=== PATIENT | male | born 1985 | race African-American/Black ===

== ENCOUNTER 2016-12-30 14:23 | Emergency (ER) | payer BC ==
[~2016-12-30] VITALS: Ht 185.4 cm; Wt 136.1 kg
[2016-12-30 14:38] VITALS: BP 152/86
[2016-12-30] MEDS ORDERED: AMOX500C PO (14:52)
[2016-12-30] MEDS ORDERED: DEXA4TAB PO (14:52)
--- NOTE | 2016-12-30 14:53 | PHYS DOC ---
Past Medical History Past Medical History: Other Additional Past Medical Histor: DEPRESSION Past Surgical History: No Surgical History Alcohol Use: Occasionally Drug Use: None Adult General Chief Complaint Chief Complaint: SORE THROAT HPI HPI Patient is a 31 year old male since emergency Department with a 3 day history of a sore throat. States that he has had some fever and chills although has not taken anything at home for the irritation. Patient denies any nausea vomiting he denies cough or congestion. Review of Systems Review of Systems Constitutional: subjective fever Eyes: Denies change in visual acuity, redness, or eye pain [] HENT: Denies nasal congestion C/o sore throat [] Respiratory: Denies cough or shortness of breath [] Cardiovascular: No additional information not addressed in HPI [] GI: Denies abdominal pain, nausea, vomiting, bloody stools or diarrhea [] : Denies dysuria or hematuria [] Musculoskeletal: Denies back pain or joint pain [] Integument: Denies rash or skin lesions [] Neurologic: Denies headache, focal weakness or sensory changes [] Endocrine: Denies polyuria or polydipsia [] Allergies Allergies Allergies Coded Allergies Type Severity Reaction Last Updated Verified aspirin Allergy Severe ANAPHYLAXIS 05/18/14 Yes ibuprofen Allergy Severe Anaphylaxis 05/18/14 Yes morphine Allergy Intermediate Itching 05/18/14 Yes Physical Exam Physical Exam Constitutional: Well developed, well nourished, no acute distress, non-toxic appearance. [] HENT: Normocephalic, atraumatic, bilateral external ears normal, oropharynx moist, no oral exudates, nose normal. Lateral tympanic membranes appear to be normal. Throat with redness and erythematous noted no exudate noted. No uvula deviation noted. No anterior cervical adenopathy noted. Patient is able to maintain saliva. Eyes: PERRLA, EOMI, conjunctiva normal, no discharge. [] Neck: Normal range of motion, no tenderness, supple, no stridor. [] Cardiovascular:Heart rate regular rhythm, no murmur [] Lungs & Thorax: Bilateral breath sounds clear to auscultation [] Skin: Warm, dry, no erythema, no rash. [] Back: No tenderness, Extremities: No tenderness, no cyanosis, no clubbing, ROM intact, no edema. [] Neurologic: Alert and oriented X 3, normal motor function, normal sensory function, no focal deficits noted. [] Psychologic: Affect normal, judgement normal, mood normal. [] Current Patient Data Vital Signs Vital Signs Date Time Temp Pulse Resp B/P (MAP) Pulse Ox O2 Delivery O2 Flow Rate FiO2 12/30/16 14:38 97.8 78 20 94 Room Air 97.8 EKG EKG [] Radiology/Procedures Radiology/Procedures [] Course & Med Decision Making Course & Med Decision Making Pertinent Labs and Imaging studies reviewed. (See chart for details) Rapid strep was negative. Patient will be discharged home with amoxicillin a dexamethasone. Recommended plenty of fluids. Tylenol for pain and discomfort. Patient will be discharged home in stable condition with signs and symptoms to return back to emergency department. [] Dragon Disclaimer Dragon Disclaimer This electronic medical record was generated, in whole or in part, using a voice recognition dictation system. Departure Departure Impression: Primary Impression: Pharyngitis Disposition: HOME, SELF-CARE Condition: STABLE Referrals: NON,STAFF (PCP) Patient Instructions: Viral and Bacterial Pharyngitis, [id number] Additional Instructions: Activity as tolerated Medication as prescribed Tylenol for fever, chills or generalized body aches and discomfort Drink plenty of fluids Followup with primary care provider in 3-5 days Return to emergency department as needed for signs and symptoms that become worse. Scripts Dexamethasone (DEXAMETHASONE) 4 Mg Tablet 2 TAB PO DAILY, #10 TAB Prov: HIEN MOJICA APRN 12/30/16 Amoxicillin (AMOXICILLIN) 500 Mg Capsule 1 CAP PO BID, #20 CAP Prov: HIEN MOJICA APRN 12/30/16 HIEN MOJICA APRN December 30, 2016 14:53
[2016-12-31 08:15] LABS: NEGATIVE OBC STREP NEG; POSITIVE OBC STREP POS
== END 2016-12-30 15:03 | disposition home or self-care (01) ==
LOC: ER 14:23
DX: J02.9 Acute pharyngitis, unspecified (principal); F32.9 Major depressive disorder, single episode, unspecified; Z88.5 Allergy status to narcotic agent; Z88.6 Allergy status to analgesic agent
CPT/HCPCS: 87070; 87880; 99283; 99284